=== PATIENT | male | born 1985 | race Caucasian/White ===

== ENCOUNTER 2018-03-27 00:40 | Emergency (ER) | payer OTHER ==
--- NOTE | 2018-03-27 01:13 | EDM.PDOC ---
ED HPI GENERAL MEDICAL PROBLEM - General Stated Complaint: HAND PAIN Time Seen by Provider: 03/27/18 01:03 - History of Present Illness INITIAL COMMENTS - FREE TEXT/NARRATIVE: HISTORY AND PHYSICAL: History of present illness: Patient's a 32-year-old white male presents with concern of left wrist and hand injury that occurred when he struck a wall he denies other trauma or concern. Review of systems: As per history of present illness and below otherwise all systems reviewed and negative. Past medical history: As per history of present illness and as reviewed below otherwise noncontributory. Surgical history: As per history of present illness and as reviewed below otherwise noncontributory. Social history: No reported history of drug or alcohol abuse. Family history: As per history of present illness and as reviewed below otherwise noncontributory. Physical exam: Extremities: Moderate swelling dorsal aspect of and limited range of motion secondary to pain minor ecchymosis noted CMS neurovascular exam are unremarkable. Neuro: Awake, alert, oriented. Nonfocal Diagnostics: X-ray left hand/wrist Therapeutics: Jonnathan wrap Impression: #1 acute left hand/wrist injury Definitive disposition and diagnosis as appropriate pending reevaluation and review of above. left hand Pain Score (Numeric/FACES): 4 - Related Data Allergies Allergy/AdvReac Type Severity Reaction Status Date / Time No Known Allergies Allergy Verified 03/27/18 01:03 Home Meds: Home Meds Sertraline HCl [Zoloft] 100 mg PO 03/27/18 [History] cloNIDine [Clonidine] 0.3 each 03/27/18 [History] ED ROS GENERAL - Review of Systems Review Of Systems: ROS reveals no pertinent complaints other than HPI. ED EXAM, GENERAL - Physical Exam Exam: See Below (See dictation) Course - Vital Signs Last Recorded V/S: Last Vital Signs Temp 37.1 C 03/27/18 01:07 Pulse 130 H 03/27/18 01:07 Resp 20 03/27/18 01:07 BP 148/101 H 03/27/18 01:07 Pulse Ox 98 03/27/18 01:07 - Orders/Labs/Meds Orders: Active Orders 24 hr Category Date Time Status Hand 2V Lt [CR] Stat Exams 03/27/18 01:09 Ordered Departure - Departure Time of Disposition: 01:13 Disposition: Home, Self-Care 01 Condition: Good Clinical Impression: Hand injury, Wrist injury - Discharge Information Referrals: PCP,None [Primary Care Provider] - Additional Instructions: The following information is given to patients seen in the emergency department who are being discharged to home. This information is to outline your options for follow-up care. We provide all patients seen in our emergency department with a follow-up referral. The need for follow-up, as well as the timing and circumstances, are variable depending upon the specifics of your emergency department visit. If you don't have a primary care physician on staff, we will provide you with a referral. We always advise you to contact your personal physician following an emergency department visit to inform them of the circumstance of the visit and for follow-up with them and/or the need for any referrals to a consulting specialist. The emergency department will also refer you to a specialist when appropriate. This referral assures that you have the opportunity for followup care with a specialist. All of these measure are taken in an effort to provide you with optimal care, which includes your followup. Under all circumstances we always encourage you to contact your private physician who remains a resource for coordinating your care. When calling for followup care, please make the office aware that this follow-up is from your recent emergency room visit. If for any reason you are refused follow-up, please contact the [facility] emergency department at and asked to speak to the emergency department charge nurse. [] - My Orders Last 24 Hours: My Active Orders 03/27/18 01:09 Hand 2V Lt [CR] Stat - Assessment/Plan Last 24 Hours: My Active Orders 03/27/18 01:09 Hand 2V Lt [CR] Stat
--- NOTE | 2018-03-27 13:24 | CR ---
EXAM DATE: 03/27/18 PATIENT'S AGE: 32 Patient: OLIVERIO LEVIN Facility: [place], [place] Site . Site : 1985 Study: XRay Extremity Left HAND [id number] 1:34:34 AM Ordering Physician: Doctor Hart Final Report: Indication: Left hand pain after punching something Technique: Three views left hand Comparison: None Findings: Bones: Alignment is normal. No fractures or bone lesions. Joint spaces: Unremarkable. Soft tissues: Unremarkable. Impression: Negative. Dictated by Karyn Bhatti MD @ Mar 27 2018 1:38AM (Electronic Signature) Report Signed by Proxy. GARY
== END 2018-03-27 01:35 | disposition home or self-care (01) ==
LOC: MW.ED 00:40
DX: S69.92XA Unspecified injury of left wrist, hand and finger(s), initial encounter (principal); Z79.899 Other long term (current) drug therapy; W22.01XA Walked into wall, initial encounter
CPT/HCPCS: 73130-26-LT; 73130-LT; 99283